=== PATIENT | female | born 1985 | race Caucasian/White ===

== ENCOUNTER → 2020-11-03 | Outpatient (CLI) | payer OTHER ==
--- NOTE | 2020-11-03 14:29 | RAD ---
Thyroid ultrasound for mass of the thyroid, no comparison. Technique and findings: Real-time grayscale and color Doppler evaluation of the thyroid gland is perf ormed. The right lobe measures 5.3 x 1.8 x 1.6 cm and the left measures 4.9 x 1.7 x 1.5 cm. There is mild heterogeneity of background echotexture diffusely. No abnormalities of color flow. The isthmus m easures 7 mm in thickness. On the right at the inferior pole, there is a 0.8 x 0.8 x 0.6 cm solid hyp oechoic nodule which is wider than tall and demonstrates ill-defined margins with no internal echogen ic foci. This corresponds to a TR 4 lesion with recommendations as listed below. In the left lobe of the thyroid gland, also the inferior pole, there is a 1.8 x 1.5 x 0.8 cm solid isoechoic nodule which is wider than tall and demonstrates smooth margins with no internal echogenic foci, corresponding to a TR 3 lesion. Management recommendation is as listed below. No suspicious adenopathy is seen. IMPRESSION: 1. 1.8 cm TR 3 nodule in the left thyroid. 2. 0.8 mm TR 4 nodule in the right thyroid. ACR TI-RADS 2017 Composition - cystic or completely cystic: Benign, no further score - spongiform: Benign, no further score - mixed cystic and Solid: 1 point - solid or almost completely solid: 2 points Echogenicity - anechoic: 0 points - hyper- or isoechoic: 1 point - hypoechoic: 2 points - very hypoechoic: 3 points Shape (assess on transverse plane) - wider than tall: 0 points - taller than wide: 3 points Margin - smooth: 0 points - ill-defined: 0 points - lobulated/irregular: 2 points - extra-thyroidal extension: 3 points Echogenic Foci - none: 0 points - large comet tail artifact: 1 point - peripheral/rim calcifications: 2 points - punctate echogenic foci: 3 points TR1 - 0-1 points; Benign TR2 - 2 points; Not Suspicious TR3 - 3 points; Mildly Suspicious; Follow-up at 1,3,5 years for >= 1.5cm and FNA for >=2.5cm TR4 - 4-6 points; Moderately Suspicious; Follow-up at 1,2,3,5 years for >= 1.0cm and FNA for >= 1.5cm TR5 - 7+ points; Highly Suspicous; Follow=up at 1,2,3,4,5 years for >= 0.5cm and FNA for >= 1.0cm Notes: Only score and report the Four highest scoring nodules. Significant interval enlargement on fo llow-uup is defined as >20% and > 2mm in two dimensions or > 50% increase in volume. If there are mul tiple nodules, the two with the highest ACR TI-RADS score should be sampled, rather than the two larg est. Electronically signed by: Daniel Smith MD (11/03/2020 2:27 PM) [id number]
== END ==
LOC: US 10:54
PROVIDERS: ATTEND Family Medicine
DX: E07.9 Disorder of thyroid, unspecified (principal)
CPT/HCPCS: 76536

== ENCOUNTER → 2021-07-06 | Outpatient (CLI) | payer OTHER ==
--- NOTE | 2021-07-06 10:09 | RAD ---
RIGHT LEG VENOUS DOPPLER STUDY: Clinical indications: Right lower extremity calf pain. Findings: Duplex sonography (including judge scale evaluation and color flow and waveform spectral radha lysis) of the proximal aspect of the greater saphenous vein and proximal aspect of the profunda femor al vein and the entire length of the common femoral and superficial femoral and popliteal veins and t he tibioperoneal trunk and the proximal aspect of the posterior tibial veins of the right leg was per formed. Normal compressibility, augmentation of color Doppler flow after calf compression, and respir atory variation of Doppler flow is seen. Thus, there are no sonographic findings of deep venous throm bosis within these veins. Peroneal veins are not visualized due to patient's larger body habitus. Impression: There are no sonographic findings of deep venous thrombosis within the veins discussed ab ove of the right lower extremity. Electronically signed by: Joe Ayers MD (07/06/2021 10:06 AM) [id number]
== END ==
LOC: PMG 08:20
PROVIDERS: ATTEND Nurse Practitioner Family
DX: M79.661 Pain in right lower leg (principal)
CPT/HCPCS: 93971